=== PATIENT | male | born 1990 | race Caucasian/White ===

== ENCOUNTER 2020-08-18 13:42 | Emergency (ER) | payer OTHER ==
[~2020-08-18] VITALS: Ht 193 cm; Wt 128.8 kg
--- NOTE | 2020-08-18 14:48 | REP ---
INDICATION: TRAUMA, HYPEREXTENSION. COMPARISON: None. TECHNIQUE: Four views of the left wrist. FINDINGS: Four views of the left wrist demonstrate overall normal mineralization. Joint spaces are preserved. No fracture or subluxation is seen. Alignment is normal. IMPRESSION: Negative radiographs of the left wrist. <Electronically signed by Favian Aguila > 08/18/20 [id number]
[2020-08-18] MEDS ORDERED: KETOROLAC 60MG 2ML VIAL IM ONE (16:30)
[2020-08-18 16:33] VITALS: BP 136/96
--- OUTSIDE RECORDS SUMMARY | 2020-08-18 16:39 | CCD ---
Author Author [facility] Organization [facility] Address Unknown Phone Unavailable Care Team Providers Care Industrial Machinery Mechanic Name Role Phone BULL SORIANO Unavailable Unavailable Giles, Jennifer FRONT END SOFTWARE ENGINEER Unavailable Unavailable Giles, Jennifer FRONT END SOFTWARE ENGINEER Unavailable Unavailable Giles, Jennifer FRONT END SOFTWARE ENGINEER Unavailable Unavailable Giles, Jennifer FRONT END SOFTWARE ENGINEER Unavailable Unavailable Giles, Jennifer FRONT END SOFTWARE ENGINEER Unavailable Unavailable Giles, Jennifer FRONT END SOFTWARE ENGINEER Unavailable Unavailable Giles, Jennifer FRONT END SOFTWARE ENGINEER Unavailable Unavailable Giles, Jennifer FRONT END SOFTWARE ENGINEER Unavailable Unavailable Giles, Jennifer FRONT END SOFTWARE ENGINEER Unavailable Unavailable Giles, Jennifer FRONT END SOFTWARE ENGINEER Unavailable Unavailable Giles, Jennifer FRONT END SOFTWARE ENGINEER Unavailable Unavailable Mele PLAZA MD Unavailable Unavailable VENERUSMele MD Unavailable Unavailable VENERUSMele MD Unavailable Unavailable VENERUSMele MD Unavailable Unavailable VENERUSMele MD Unavailable Unavailable VENERUSMele MD Unavailable Unavailable VENERUSMele MD Unavailable Unavailable VENERUSMele MD Unavailable Unavailable VENERUSMele MD Unavailable Unavailable Re-disclosure Warning The records that you are about to access may contain information from federally-assisted alcohol or drug abuse programs. If such information is present, then the following federally mandated warning applies: This information has been disclosed to you from records protected by federal confidentiality rules (42 CFR part 2). The federal rules prohibit you from making any further disclosure of this information unless further disclosure is expressly permitted by the written consent of the person to whom it pertains or as otherwise permitted by 42 CFR part 2. A general authorization for the release of medical or other information is NOT sufficient for this purpose. The Federal rules restrict any use of the information to criminally investigate or prosecute any alcohol or drug abuse patient.The records that you are about to access may contain highly sensitive health information, the redisclosure of which is protected by Article 27-F of the [place] Public Health law. If you continue you may have access to information: Regarding HIV / AIDS; Provided by facilities licensed or operated by the [place] Office of Mental Health; or Provided by the [place] Office for People With Developmental Disabilities. If such information is present, then the following [place] mandated warning applies: This information has been disclosed to you from confidential records which are protected by state law. State law prohibits you from making any further disclosure of this information without the specific written consent of the person to whom it pertains, or as otherwise permitted by law. Any unauthorized further disclosure in violation of state law may result in a fine or prison sentence or both. A general authorization for the release of medical or other information is NOT sufficient authorization for further disc losure. Allergies and Adverse Reactions Type Description Substance Reaction Status Data Source(s ) No Known Drug Allergies No Known Drug Allergies [facility] No Known Environmental Allergies No Known Environmental [facility] No Known Food Allergies No Known Food Allergies [facility] Encounters Encounter Providers Location Date Indications Data Source(s ) Emergency Attender: CHRISTOS PLAZA MD 03/16 12:35:00 PM EDT - 03/16/2020 04:46:00 PM EDT [facility] Patient discharged. Outpatient Attender: BULL SORIANO 02/26/20 06:59:21 AM EDT - 02/27/2020 12:30:00 PM EDT [facility] Patient discharged. Outpatient Attender: BULL SORIANO 02/22/20 09:27:07 AM EDT - 02/22/2020 09:59:00 AM EDT [facility] Patient discharged. Outpatient Attender: Jennifer zuluaga 10/27/2019 03:00:00 PM EDT [facility] ([facility]) Medications Medication Brand Name Start Date Product Form Dose Route Admi nistrative Instructions Pharmacy Instructions Status Indications Reaction Description Data Source(s) 20 mg 10/28/2019 12:00:00 AM EDT tablet 8 TAKE ONE TABLET BY MOUTH TWICE A DAY FOR 4 DAYS TAKE ONE TABLET BY MOUTH TWICE A DAY FOR 4 DAYS SOLD: 2019 [facility] 4 mg 10/28/2019 12:00:00 AM EDT capsule 30 TAKE ONE CAPSULE BY MOUTH EVERY 6 TO 8 HOURS NEEDED TAKE ONE CAPSULE BY MOUTH EVERY 6 TO 8 HOURS NEEDED SOLD: 10/28/2019 [facility] Ibuprofen 800 MG Oral Tablet Ibuprofen 10/27/2019 12:00:00 AM EDT ORAL active [facility] ([facility] 800 mg 10/27/2019 12:00:00 AM EDT tablet 30 TAKE ONE TABLET BY MOUTH THREE TIMES A DAY NEEDED FOR PAIN TAKE ONE TABLET BY MOUTH THREE TIMES A D AY NEEDED FOR PAIN SOLD: 10/27/2019 [facility] Insurance Providers Payer name Policy type / Coverage type Policy ID Covered constitution party ID Covered constitution party's relationship to arizmendi Policy Arizmendi Plan Information [facility] [id number] SP [id number] [facility] [id number] [facility] - O/P [id number] 18 [id number] Problems, Conditions, and Diagnoses Code Display Name Description Problem Type Effective Dates Data Source(s) R600 Localized edema Localized edema Diagnosis 03/16/2020 12:3 5:00 PM EDT [facility] R2242 Localized swelling, mass and lump, left lower limb Localized swelling, mass and lump, left lower limb Diagnosis 03/16/2020 12:35:00 PM EDT [facility] [id number] Other instability, left ankle Other instability, left ankle Diagnosis 02/27/2020 06:15:00 AM EDT [facility] [id number] Encounter for other preprocedural examin ation Encounter for other preprocedural examination Diagnosis 02/22/2020 09:30:[address] [facility] Surgeries/Procedures Procedure Description Date Indications Data Source(s) Apply Splint Short Leg (Calf To Foot) 10/27/2019 12:00 :00 AM EDT [facility] ([facility] Results ID Date Data Source [id number] 07/15/2020 12:00:00 AM EST [facility] Name Value Range Interpretation Code Description Data Cindy rce(s) Supporting Document(s) SARS coronavirus 2 RNA Not Detected [facility] This lab was ordered by [employer] and rep orted by [facility]. ID Date Data Source [id number] 03/17/2020 09:47:00 AM EDT [facility] [address] [place] [address] PHONE: [phone] FAX: [phone] Name .................. : LETTY Eng Acct Number.................. : [id number] ROOM. ................. : TR-04 Number ................... : [id number] Stay type ............. : E/R Discharge Date......... ... : Admit Date ......... : 03/16/20 Admit Phys .................... : MAGGIES GRETCHEN Date of ....... : 1990 Family Phys ................... : UNKNOWN CO Phone .................. : [phone] Age ................................ : 29 Film# .................. .:[id number] Sex ................................. : M Unsigned transcriptions are preliminary reports and do not represent a medical or legal document US DOPPLER UNILATERAL VENOUS [id number] COMPLETE:03/16/20 13:29 [id number] Reason(s): Cold Extremity LEFT LEG VENOUS DOPPLER ULTRASOUND: INDICATION: Cold extremity. FINDINGS: There is normal compressibility of the deep venous system from the external iliac through the popliteal vein with normal augmentation identified. IMPRESSION: No evidence for any underlying DVT. Electronically Reviewed and Signed By Arnel Lee MD , 03/17/20 09:47, CRESENCIO pierre Initials: DZ , Transcribe Date: 03/16/20 16:04, Dictation Date: Copy for: LORENA BETH via fax Copy for: EMERGENCY DEPT via modem Copy for: 710 MED REC DISCHARGED Page 1 of 1 Name Value Range Interpretation Code Description Data Cindy rce(s) Supporting Document(s) ID Date Data Source [id number] 03/16/2020 12:35:00 PM EDT [facility] 1 OrderSheet [facility] Emergency Department [address] [place] [address] Phone #: ext- [phone] 03/16/2020 12:33 Patient: DAMEON SAENZ Sex: M : 1990 Age: 29yWEIGHT:120.2 kg (S) HEIGHT:76 inches (S) BMI:32.3ALLERGIES: NoneCHIEF COMPLAINT: pain, swellingDIAGNOSIS: O/E - edema of feet, Pain in lower limbLAB ORDERSOrder Description Priority Entered Acknowledged InitialedCBC w Diff STAT 13:03/16/2020 13:33 Geo LinoNBernardo PBernardoA.-C;CMP STAT 13:03/16/2020 13:33 Geo Lino R.N. PBernardoA.- C;Urinalysis (Clean STAT 13:03/16/2020 13:33 Zoie,Catch) Geo Rivera R.N. PBernardoABernardo-C;PT/PTT STAT 13:03/16/2020 13:33 Geo Lino R.N.ABernardo-C;DIAGNOSTIC STUDY ORDERSOrder Description Priority Entered Acknowledged InitialedUS Lower Ext STAT 13:03/16/2020 13:33 Zoie,Venous Left Geo Rivera R.N.(Oxygen?(No)) P.A.-C; Reason for Study: Cold Extremity, Discolored Extremity, Lower Ext Pain/Immobility, Pain, Limb, Swelling, LimbMEDICATION/IV/DRIP/FLUID ORDERSOrder Description Priority Entered Acknowledged InitialedAtivan PO 1 mg 13:03/16/2020 13:49 Geo Lino R.N. P.A.-C;Tylenol PO 1000 13:03/16/2020 13:48 Zoie,mg Geo Rivera R.N. P.A.-C;GENERAL ORDERS 2 OrderSheet [facility] Emergency Department [address] [place] [address] Phone #: ext- [phone] 03/16/2020 12:33 Patient: DAMEON SAENZ Sex: M : 1990 Age: 29yOrder Description Priority Entered Acknowledged InitialedNPO 13:03/16/2020 13:33 Geo Lino R.N. PBernardoA.-C;Saline Lock 13:03/16/2020 16:24 Suzi Partida RN P.A.-C;[Electronically signed by Miguel Lino R.N. (16:53 03/16/2020)][Electronically signed by Geo Pantoja P.A.-C (21:06 03/16/2020)][Electronically locked by Miguel Lino R.N. (16:53 03/16/2020)] Name Value Range Interpretation Code Description Data Cindy rce(s) Supporting Document(s) ID Date Data Source [id number] 03/16/2020 12:35:00 PM EDT [facility] 1 Medication Reconciliation Report [facility] Emergency Department [address] [place] [address] Phone #: ext- [phone] 03/16/2020 12:33 [id number] Sex[facility] M : 1990 Age: 29yWeight: 120.2 kgHeight/Length: 76 in.BMI: 32.3ALLERGIES: NoneThe patient's Home Medications are listed below:NONE.The source(s) of the original Home Medication information:patientThe following Medications were given to the patient in the Emergency Department:Tylenol [PO] PO 1000 mg, administered: 03/16/2020 1:38:00 PMAtivan [PO] PO 1 mg, administered: 03/16/2020 1:39:00 PMThe following Medications were prescribed to the patient:Media 5 mg- 325 mg tablet Take 1 tablet three times a day for 3 days -- Dispense 9 tablet. Refills: 0.Substitution permitted. Note to Pharmacy - Post op pain.Pharmacy - [id number] ; [place] [address]. . -- Geo Pantoja P.A.-C Name Value Range Interpretation Code Description Data Cindy rce(s) Supporting Document(s) ID Date Data Source [id number] 03/16/2020 12:35:00 PM EDT [facility] 1 Medication Administration Record [facility] Emergency Department [address] [place] [address] Phone #: ext- [phone] 03/16/2020 12:33 Patient: DAMEON SAENZ Sex: M : 1990 Age: 29yWeight: 120.2 kgHeight/Length: 76 inBMI: 32.3ALLERGIES: None Date/Time Medication Administered Medication OrderedGiven ATIVAN [PO] (LORAZEPAM) Ativan PO 1 mg13:39 03/16/2020 Dose: 1 mg Tablets POSMiguel jack, R.N.Given TYLENOL [PO] (APAP) Tylenol PO 1000 mg13:38 03/16/2020 Dose: 1000 mg Tablets Miguel Barksdale, R.N. Name Value Range Interpretation Code Description Data Cindy rce(s) Supporting Document(s) ID Date Data Source [id number] 03/16/2020 12:35:00 PM EDT [facility] 1 General Instructions [facility] Emergency Department [address] [place] [address] Phone #: ext- [phone] 03/16/2020 12:33 Patient: DAMEON SAENZ Sex: M : 1990 Age: 29yAcute left calf, ankle and foot pain.Left pedal edema secondary to unknown cause.INSTRUCTIONSUse crutches. Wear boot orthosis.(Discussed and Dr. Soriano wants to see you in the AM at the clinic).Warnings: Further evaluation is necessary.SEDATIVE MEDICATION: You were given sedative medication during your visit. Do not drive or operatedangerous machinery.CONTROLLED SUBSTANCE WARNINGS.GENERAL WARNINGS: Return or contact your physician immediately if your condition worsens orchanges unexpectedly, if not improving as expected, or if other problems arise.Prescription monitor program consulted by me.Prescription Medications:Media 5 mg-325 mg tablet Take 1 tablet three times a day for 3 days -- Dispense 9 tablet. Refills: 0.Substitution permitted. Note to Pharmacy - Post op pain.Pharmacy - [facility] [phone] ; [place] [address]. .Follow-up:Return to the emergency department as needed. Follow up with your healthcare provider tomorrow.Reason for referral: evaluation and treatment.Understanding of the discharge instructions verbalized by patient.Follow-up with: [facility], , , [address], ,[place], [address] Follow up tomorrow. Reason for referral: evaluation and treatment. ADDITIONAL INFORMATIONMyofascial Pain Syndrome 2 General Instructions [facility] Emergency Department [address] [place] [address] Phone #: ext- [phone] 03/16/2020 12:33 Patient: DAMEON SAENZ Sex: M : 1990 Age: 29yYour pain is caused by a state of chronic muscle tension. This condition is called by various names:myofascial pain, fibrositis, and trigger point pain. This can also be due to mechanical stress, such asworking at a computer terminal for long periods or work that requires repetitive motions of the arms orhands. It can also be caused by emotional stress, such as problems on the job or in your personallife. Sometimes there is no obvious cause. The pain can happen in the area of the muscle spasm orat a site distant to it. For example, spasm of a neck muscle can cause headache. Spasm of themuscle near the shoulder blade can cause pain shooting down the arm.Home care Try to identify the factors that may be causing your problem and change them: o If you feel that emotional stre ss is a cause of your pain, learn methods to better deal with the stress in your life. These may include regular exercise, muscle relaxation techniques, meditation, or simply taking time out for yourself. Talk with your healthcare provider or go to a local bookstore and review the many books and tapes about reducing stress. o If you feel that physical stress is a cause for your pain, try to change any poor work habits. You may use wqpv-rlx-astxaid pain medicine to control pain, unless another medicine was prescribed. If you have chronic liver or kidney disease or ever had a stomach ulcer or gastrointestinal bleeding, talk with your healthcare provider before using these medicines. Apply an ice pack over the injured area for 15 to 20 minutes every 3 to 6 hours. You should do this for the first 24 to 48 hours. You can make an ice pack by filling a plastic bag that seals at the top with ice cubes and then wrapping it with a thin towel. Be careful not to injure your skin with the ice treatments. Ice should never be applied directly to skin. Continue the use of ice packs for relief of pain and swelling as needed. After 48 hours, apply heat (warm shower or warm bath) for 15 to 20 minutes several times a day, or alternate ice and heat. Massage the trigger point and stretch out the muscle. Trigger point massage can be done by applying heat to the area to warm and prepare the muscle. Then have someone apply steady thumb pressure directly on the knot in the muscle for 30 seconds. Release the pressure, then massage the surrounding muscle. Repeat the process, applying more pressure to the trigger point each time. Do this up to the limit of pain. With each treatment, the trigger point should become less tender and the pain should decrease. You can apply local pressure to trigger points in the back by lying on the floor with a tennis ball under the trigger point.Follow-up careFollow up with your healthcare provider, or as advised. You may need physical therapy if you don'trespond to home treatment alone. 3 General Instructions [facility] Emergency Department [address] [place] [address] Phone #: ext- [phone] 03/16/2020 12:33 Patient: DAMEON SAENZ Sex: M : 1990 Age: 29yCall 911Call 911 if you have: A trigger point in the chest muscles, pain that becomes more severe, lasts longer, or spreads into your shoulder, arm, or jaw Chest pain or discomfort Trouble breathing with or without chest discomfort Sweating, lightheadedness, nausea, or vomiting along with chest discomfort Sudden weakness or numbness in the arm, leg, or face, especially if this happens on one side of the b odyWhen to seek medical adviceCall your healthcare provider right away if any of these occur: A week passes and you have not improved If your pain worsens, regardless of its location [phone] [employer]. [address] [place] [address]. All rights reserved. This information is not intended as asubstitute for professional medical care. Always follow your healthcare professional's instructions. You have been given the following additional information: Myofascial Pain Syndrome(Electronically signed by Geo Pantoja P.A.-C 03/16/2020 21:06) Name Value Range Interpretation Code Description Data Cindy rce(s) Supporting Document(s) ID Date Data Source [id number] 03/16/2020 12:35:00 PM EDT [facility] 1 Clinical Report - Nurses [facility] Emergency Department [address] [place] [address] Phone #: ext- [phone] 03/16/2020 12:33 Patient: DAMEON SAENZ Sex: M : 1990 Age: 29yTRIAGEArrived by private vehicle. Historian: patient. Accompanied by family. ( presents with left leg post oppain. rostrum done on left ankle 02/27/2020).Triage time: 12:38 03/16/2020. Acuity: LEVEL 4.Chief Complaint: LEFT LOWER EXTREMITY SWELLING and REDNESS.12:38 03/16/20. Alert. No acute distress.No injury occurred. This is a new problem and onset was abrupt. (02/27/2020).Treatment [employer]:Took Tylenol and ibuprofen. Seen within the last 72 hours at another facility; seen for similar symptoms;sonogram done.SEPSIS SCREEN: Sepsis Screen negative. No suspected or confirmed signs of infection present.SHAUN COMA SCORE: 15- eyes open- spontaneous (4); best verbal response- oriented (5); bestmotor response- obeys commands (6). --12:44 03/16/20 Miguel Lino R.N.13:32 03/16/20. BP: 145/85. MAP: 105. HR: 93. RR: 16. O2 saturation: 100%. Temp: 95.6 F. Pain levelnow: 11/03. --13:33 03/16/20 Miguel Lino R.N.Weight: 120.2 kg stated. Height/Length: 76 inches Per Patient. BMI: 32.3. --12:38 03/16/20 Miguel Lino R.N.MedicationsNone. --12:42 03/16/20 Miguel Lino R.N.AllergiesNone. --12:42 03/16/20 Miguel Lino R.N.PROBLEMS:no known problems.12:38 03/16/20. Medication/allergy information source: the patient. --12:44 03/16/20 Miguel Lino R.N.ADDITIONAL SURGERIES:Rostrum [02/27/2020]. (Left ankle). --12:42 03/16/20 Miguel Lino R.N.Yjrardo89:38 03/16/20. 2 Clinical Report - Nurses [facility] Emergency Department [address] [place] [address] Phone #: ext- [phone] 03/16/2020 12:33 Patient: DAMEON SAENZ Sex: M : 1990 Age: 29y PAST MEDICAL HX: Tetanus status: up-to-date. SOCIAL HX: Never smoker. Occasional alcohol use. No drug use. He was offered HIV testing but declined and hepatitis C testing but declined. He has not traveled outside the [place] Infectious disease exposure: No infectious disease exposure. Patient is not a known carrier of tuberculosis, hepatitis, HIV, MRSA or VRE. Patient is not a known carrier of CRE. SELF HARM ASSESSMENT: Self harm assessment was performed. The patient answered "no" to the question(s) "Have you recently felt down, depressed, or hopeless?", "Do you have thoughts of harming or killing yourself?", "Do you have a plan for harming or killing yourself?" and "Have you recently had thoughts about harming or killing others?". ABUSE ASSESSMENT: No report of abuse. NUTRITIONAL RISK ASSESSMENT: The nutritional risk assessment revealed no deficiencies. FUNCTIONAL ASSESSMENT: Functional assessment: no impairments noted. LEARNING NEEDS ASSESSMENT: The learning needs assessment revealed no barriers. FALL RISK ASSESSMENT: Fall risk assessment completed. Risk factors identified include patient impairment of mobility. SKIN INTEGRITY ASSESSMENT: Skin integrity risk assessment completed. No skin integrity risk identified. --12:44 03/16/20 Miguel Lino R.N. Assessment 12:38 03/16/20. He states feels the same. --12:44 03/16/20 Fr daylin Lino R.N. Interventions 12:38 03/16/20. Identification band on patient. To treatment room. --12:44 03/16/20 Miguel Lino R.N.PHYSICAL VINJPXDRHC45:45 03/16/20. Ambulatory to room.GENERAL / NEURO / PSYCH: Oriented X 4. Alert. Appears in no acute distress.EXTREMITIES: Limited ROM present in the left ankle. Constant and increased with dorsiflexion left-sidedcalf tenderness. Non-pitting edema of the left lower extremity involving the foot and ankle. Extremitypulses are within normal limits. Neuro-vascular status intact to the extremity. Left ankle. Left lateralankle: tenderness, swelling and erythema (sutures intact). Left foot.SKIN: Skin intact. Skin is warm and dry. --12:45 03/16/20 Miguel Lino R.N. Correction --12:46 03/16/20Miguel jack R.N. 12:47 03/16/20. Ambulatory to room. GENERAL / NEURO / PSYCH: Oriented X 4. Alert. Appears in no acute distress. 3 Clinical Report - Nurses [facility] Emergency Department [address] [place] [address] Phone #: ext- [phone] 03/16/2020 12:33 Patient: DAMEON SAENZ Sex: M : 1990 Age: 29y EXTREMITIES: Limited ROM present in the left ankle. Constant and increased with dorsiflexion left-sided calf tenderness. Non-pitting edema of the left lower extremity involving the foot and ankle. Extremity pulses are within normal limits. Neuro-vascular status intact to the extremity. Left ankle. Left lateral ankle: tenderness, swelling and erythema (steri strips intact). Left foot. SKIN: Skin intact. Skin is warm and dry. --12:47 03/16/20 Miguel Lino R.N.NURSING PROGRESS NOTES12:46 03/16/20. Reassurance given. Two patient identifiers checked. Call light placed in reach. Bedplaced in lowest position. Brakes of bed on. Patient ready for evaluation- PA notified. --12:46 03/16/20Miguel jack R.N. 13:34 03/16/20. BP: 138/76. MAP: 96. HR: 81. RR: 18. O2 saturation: 98%. --13:35 03/16/20 [facility] Tech [facility] Tech1 13:38 03/16/2020 Tylenol (APAP) PO Tablets 1000 mg given. Allergies verified and confirmed 5 rights. Information reviewed with patient including reason for taking this medication, signs of allergic reaction and precautions. Verbalizes understanding. --13:48 03/16/20 Miguel Lino R.N. 13:39 03/16/2020 Ativan (LORazepam) PO Tablets 1 mg given. Allergies verified and confirmed 5 rights. Information reviewed with patient including reason for taking this medication, signs of allergic reaction, precautions and sedative warning. Verbalizes understanding. --13:49 03/16/20 Miguel Lino R.N. 13:39 03/16/20. Patient transported [facility] by wheelchair with zoning technician. --13:49 03/16/20 Miguel Lino R.N. 13:52 03/16/20. [facility] with zoning technician. --13:52 03/16/20 Miguel Lino R.N. 14:31 03/16/20. BP: 131/79. MAP: 96. HR: 81. RR: 18. O2 saturation: 99%. --14:31 03/16/20 [employer], [facility] Tech1 14:31 03/16/20. Reassurance given. Reassessment after medication administered. No adverse reaction. Pain still present but improving. He reports no complaints, he is resting quietly and he has had no adverse reaction. Overall patient status is improved- he states feels better. GENERAL / NEURO / PSYCH: Alert. Oriented X 4. RESPIRATORY: No respiratory distress. CVS: Capillary refill less than 2 seconds. EXTREMITIES: Neuro-vascular status intact to the extremities. SKIN: Skin is warm and dry. Two patient identifiers checked. Call light placed in reach. Bed placed in lowest position. Brakes of bed on. Patient informed about reason for wait and about plan of care. Patient waiting for evaluation and radiology results. --14:32 03/16/20 Miguel Lino R.N.DISPOSITION / DISCHARGE 16:26 03/16/20. BP: 127/78. MAP: 94. HR: 75. RR: 18. O2 saturation: 99%. Temp: 98.2 F. --16:27 4 Clinical Report - Nurses [facility] Emergency Department [address] [place] [address] Phone #: ext- [phone] 03/16/2020 12:33 Patient: DAMEON SAENZ Sex: M : 1990 Age: 29y 03/16/20 [facility] Isidra Woodson ER Tech1 16:41 03/16/20. Pain level now 10. --16:44 03/16/20 Miguel Lino R.N. Departure time: 16:44 03/16/2020. Condition at departure: improved and stable. The goals identified in the patient's plan of care were met. Fall risk assessment completed. Risk factors identified include patient impairment of mobility. No learning barriers present. Discharge instructions provided and reviewed with the patient. Reviewed warnings. Reviewed medication(s). Treatments reviewed. Reviewed referral to an orthopedic surgeon. Patient and spouse verbalized understanding. Written instructions provided in Setswana. The patient was discharged by the physician dam tender assistant. He was discharged home and accompanied by spouse and family. He left ambulatory and via private vehicle. Patient driving. --16:44 03/16/20 Miguel Lino R.N.Locked/Released at 03/16/2020 16:53 by Miguel Lino R.N. Name Value Range Interpretation Code Description Data Cindy rce(s) Supporting Document(s) ID Date Data Source [id number] 03/16/2020 12:35:00 PM EDT [facility] 1 Clinical Report - Physicians/Mid Levels [facility] Emergency Department [address] [place] [address] Phone #: ext- [phone] 03/16/2020 12:33 [id number] Sex[facility] : 1990 Age: 29y Time Seen: 12:48 03/16/2020; initial patient contact, initial documentation. Arrived- By private vehicle.HISTORY OF PRESENT ILLNESS Chief Complaint: LOWER EXTREMITY PAIN and SWELLING. This started about 1 weeks ago and is still present. Severity is described as being moderate. The quality is noted to be dull, aching and "pain". Symptoms located in the area of the left leg, left foot and left ankle. The patient has had redness and swelling. No difficulty walking. No bladder dysfunction, bowel dysfunction, sensory loss or motor loss. ( Pt presnets to the ER as directed by surgeon for non-improving LLE s/p surgery. Pt has [place]strom Procedure of L ankle on [id number]. Sts that he has has frequent f/u's w/ surgeon. Had sutures taken out. Sts thta over the last 1-2 wks noted a swelling/pain if he is up and noted that when he elevates it resovles. Sts he b rought this up with surgeon and sts that he had US on Thr and saw Surgon (Dr. Bull Soriano ([employer] Surgeon)) on Tuesday who infomred negative. Pt complaints of pain, swelling, and discoloration, but somewhat resolve if elevated. Pt sts he was informed if no improvement by Tuesday to go to the ER for eval. Pt deneis any CP, SOB, dyspnea, or palps. Sts he is doing as instructed as there has been no improvement.). Patient denies an injury. Similar symptoms previously. None. Recent medical care: The patient was seen recently at another facility.REVIEW OF SYSTEMSNo cough, chest pain, difficulty breathing, fever or skin rash. No enlarged lymph nodes, neck pain, backpain, headache or blurred vision. No sore throat, abdominal pain, vomiting, diarrhea or black stools. Nodifficulty with urination or bloody stools. All other systems reviewed and are negative.PAST HISTORYSee nurses notes. Problems: no known problems. Medications: None. Allergies: None. 2 Clinical Report - Physicians/Mid Levels [facility] Emergency Department [address] [place] [address] Phone #: ext- [phone] 03/16/2020 12:33 Patient: DAMEON SAENZ Sex: M : 1990 Age: 29ySOCIAL HISTORYNever smoker. Occasional alcohol use. No drug use.ADDITIONAL NOTESThe nursing notes have been reviewed.PHYSICAL EXAMVital Signs: 03/16/2020 13:32 BP: 145/85. MAP: 105. HR: 93. RR: 16. O2 saturation: 100%. Temp: 95.6F. Pain level now: 11/03. Have been reviewed. Oxygen saturation normal.Appearance: Alert. Oriented X3. No acute distress.CVS: Normal heart rate and rhythm. No JVD present. Pulses normal. Capillary refill normal. Strongperipheral pulses. Heart sounds normal. Pulses: right radial 2+; left radial 2+; right dorsalis pedis 2+; leftdorsalis pedis 2+; right posterior tibial 2+; left posterior tibial 2+.Respiratory: Chest normal on inspection. No respiratory distress. Unlabored respirations. Lungs clear.Good chest movement. Breath sounds normal and equal.Skin: Skin warm and dry.Extremities: Left leg: moderate erythema, tenderness and swelling. Neurovascular intact distally. Nolaceration, abrasion, ecchymosis, puncture wound or foreign body. No deformity. Left ankle: moderateerythema, tenderness and swelling. Neurovascular intact distally. (Surgical scar to the lateral aspect). Noabrasion. No signs of infection involving the lower extremities. Lower extremity edema. Calftenderness. No left thigh complaints.Gait: Gait not tested due to pain.Neuro: Awake. Alert. Mood/affect normal. Speech normal. No motor deficit. No sensory deficit.Psych: Cognition normal. Thought process and content normal. Insight and judgement normal.LABS, X-RAYS, AND EKGLower Extremity Sonography: Jesus pratt Brian - 03/16/2020 2:09:54 PMno dvt. The study was interpreted by the radiologist.Laboratory Tests: CBC w Diff: (LOUIE: 03/16/2020 14:04) ( MsgRcvd 03/16/2020 14:21) Final results Test Result Flag Units (Reference) CBC W/AUTOMATED DIFF COMPLETE BLOOD COUNT WBC 10.0 10/uL (4.2 - 11.0) RBC 5.20 10/uL (4.50 - 6.30) HEMOGLOBIN 15.5 g/dL (14.0 - 16.0) HEMATOCRIT 46.2 % (41.0 - 51.0) MCV 88.8 fL (80.0 - 94.0) MCH 29.8 pg (27.0 - 34.0) MCHC 33.5 g/dL (31.0 - 36.0) RDW 13.5 % (11.5 - 14.8) PLATELETS 354 10/uL (150 - 450) MPV 10.1 fL (7.4 - 10.4) NEUT 71.0 % (37.0 - 80.0) LYMPH 18.4 L % (25.0 - 40.0) MONO 9.0 H % (3.0 - 8.0) EOS 0.7 % (0.0 - 7.0) BASO 0.6 % (0.0 - 2.0) 3 Clinical Report - Physicians/Mid Levels [facility] Emergency Department [address] [place] [address] Phone #: ext- [phone] 03/16/2020 12:33 Patient: DAMEON SAENZ Sex: M : 1990 Age: 29y %IG 0.3 H % (0.0 - 0.0) %NRBC 0.0 % (0.0 - 0.0) #NEUT 7.11 H 10/uL (2.00 - 6.90) #LYMPH 1.84 10/uL (0.60 - 3.40) #MONO 0.90 10/uL (0.00 - 0.90) #EOS 0.07 10/uL (0.00 - 0.70) #BASO 0.06 10/uL (0.00 - 0.20) #IG 0.03 10/uL (0.00 - 0.10) #NRBC 0.00 10/uL (0.00 - 0.00) MANUAL DIFF NOT INDICATED RBC MORPH NOT INDICATEDCMP: (LOUIE: 03/16/2020 14:04) ( MsgRcvd 03/16/2020 14:35) Final results Test Result Flag Units (Reference) COMPREHENS MAGEN METABOLIC PANEL COMPREHENSIVE METABOLIC PANEL SODIUM 141 mEq/L (134 - 153) POTASSIUM 4.3 mEq/L (3.6 - 5.0) CHLORIDE 103 mEq/L (98 - 107) CO2 27 MEQ/L (22 - 30) GLUCOSE 91 MG/DL (65 - 110) BUN 10 MG/DL (7 - 21) CREATININE 1.1 MG/DL (0.7 - 1.5) BUN/CREAT 9 (8 - 27) TOTAL PROTEIN 6.4 G/DL (6.3 - 8.2) ALBUMIN 4.5 G/DL (3.9 - 5.0) GLOBULIN 1.9 L GM/DL (2.4 - 3.2) A/G RATIO 2.4 H (0.8 - 2.0) CALCIUM 9.8 MG/DL (8.4 - 10.2) TOTAL BILI <0.7 MG/DL (0.2 - 1.3) ALKALINE PHOS 47 U/L (38 - 126) SGOT/AST 13 U/L (5 - 40) SGPT/ALT 13 U/L (7 - 56) ANION GAP 11.0 mmol/L (8.0 - 16.0) AGE 29 yrs NON-AA GFR >60 mL/min AFR AMER GFR >60 mL/min Male GFR Interprentation 20-49 yrs >60 mL/min Ltlrsc03-55 yrs >56 mL/min Normal 60-69 yrs >49 mL/min Normal 70-79yrs>42 mL/min Normal 80 and above >35 mL/min Normal Female GFRInterpretation 20-39 yrs >60 mL/min Normal 40-49 yrs >58 mL/minNormal 50-59 yrs >51 mL/min Normal 60-69 yrs >45 mL/min Aofgbn77-81 yrs >39 mL/min Normal 80 and above >32 mL/min NormalPT/PTT: (LOUIE: 03/16/2020 14:04) ( MsgRcvd 03/16/2020 15:50) Final results Test Result Flag Units (Reference) PROTIME 13.0 SECONDS (11.0 - 15.5) INR 0.97 (0.93 - 1.23) PTT 26.4 SECONDS (24.8 - 36.7) \\BLDo\\INR INTERPRETATION\\BLDx\\ Therapeutic range for Coumadin andrelated oral anticoagulants. -International Normalized Ratio (INR): 2.0 - 3.0 for VenousThrombosis, Pulmonary Embolus, Tissue heart valves, Acute FL At rial Fibrillation, Valvular heart diseaseand recurrent Systemic Embolism. -International Normalized Ratio (INR): 2.5 - 3.5 forMechanical Prosthetic valve.US Lower Ext Venous Left: (LOUIE: 03/16/2020 13:29) ( MsgRcvd 03/16/2020 17:22) In Progress 4 Clinical Report - Physicians/Mid Levels [facility] Emergency Department [address] [place] [address] Phone #: ext- [phone] 03/16/2020 12:33 Patient: DAMEON SAENZ Sex: M : 1990 Age: 29y Exam US [place] [address] PHONE: [phone] FAX: [phone] Name .................. : LETTY Eng Acct Number.................. : [id number] ROOM. ................. : TR-04 MR Number ................... : [id number] Stay type ............. : E/R Discharge Date......... ... : Admit Date ......... : 03/16/20 Admit Phys .................... : MELA GODINEZ Date of ....... : 1990 Family Phys ................... : UNKNOWN CO Phone .................. : [phone] Age ................................ : 29 Film# .................. .:[id number] Sex ................................. : M Unsigned transcriptions are preliminary reports and do not represent a medical or legal d ocument US DOPPLER UNILATERAL VENOUS [id number] COMPLETE:03/16/20 13:29 [id number] Reason(s): Cold Extremity Discolored Extremity Lower Ext Pain/Immobility Pa LEFT LEG VENOUS DOPPLER ULTRASOUND: INDICATION: Cold extremity. FINDINGS: There is normal compressibility of the deep venous system from the external iliac through the popliteal vein with normal augmentation identified. IMPRESSION: No evidence for any underlying DVT. Electronically Reviewed and Signed By DCTNAME , SIGNDATECRESENCIO Transcribe Initials: FAWAD , Transcribe Date: 03/16/20 16:04, Dictation Date: <<REPDIST>> Page 1 of 1.PROGRESS AND PROCEDURESCourse of Care: VSS, NAD, AOx3, interacting well and appropriately, no use of accessory muscle, able tospeak full sentences, stable, non-toxic looking. Enter room and pt sitting peacefully in bed in NAD. Patient stable. Denies any new issues, concerns, or 5 Clinical Report - Physicians/Mid Levels [facility] Emergency Department [address] [place] [address] Phone #: ext- [phone] 03/16/2020 12:33 --- Patient: DAMEON SAENZ Sex: M : 1990 Age: 29y complaints. PE demos upon entering noted that LLE appeared slightly blue. Pt sts that is common. Sits back in bed and noted that LLE become more pink. No pulse d eficits; able to palpate adn obtain on doppler to confirm. ? venous insufficency. Will obtain labs and imaging for furhte reval. Pending resutls. Reviewed results and no DVT. No elevated WBC (no infection) and ntoe s/s of infection on PE. Disucssed with attending. Will consult with Ortho. Unable to contact surgeon (Dr. Soriano) to consult; do not have nubmer. Will call [employer]. Discussed with [employer]. Discussed with Dr. Dickson. Discussed and infomred of labs, hx, PE findings. Does not feel this a acute as this has been since surgery; pt sts has been a few weeks of this. ? possibe CRPS. Inquire if I shou ld consult vascular surgeon. Sts that it could be a option, but does not feel they will do anything due not acute. Consider consult. Nurse surpervisor was able to obtian nubmer to pts surgeon at [facility]. Called and discussed wiht Surgeon (Bull Soriano) at [phone]. Infomred of pt, PE findings today, lab and imaigng results, and ? possible conslut with vascular surgeon. Sts that these are the same s/s as he had seen this week and were still rpesent for hte last week. Sts he biggest concern was a DVT and this has been ruled out on 2 seperate occasions. Inquire about vascular surgeon consult. Sts that he will see pt in the clinic tomorrow and can be discharged. Enter room and patient lying peacefully in bed in NAD. Patient stable. Denies any new issues, concerns, or complaints. Discussed results with pt. Discussed tx plan with pt. Discussed and counseled on stable condition. Discussed importance of a f/u with PCP. Discussed return to ER criteria. Answered their questions. Indicates and verbalizes that they understand, agree, and will comply with above. Denies any new questions or concerns. Patient has capacity to understand. Discharge decision based on the following: patient's condition is stable; patient's exam is stable; social support is adequate; transportation is available; follow-up is available. Discussed of OTC Motrin and Tylenol to control inflammation and pain management. Informed to follow directions on bottle that are appropriate for age and/or weight. Disposition: Discharged home in good and improved condition. Condition: good and stable.CLINICAL IMPRESSION Acute left calf, ankle and foot pain. Left pedal edema secondary to unknown cause. 6 Clinical Report - Physicians/Mid Levels [facility] Emergency Department [address] [place] [address] Phone #: ext- [phone] 03/16/2020 12:33 Patient: DAMEON SAENZ Sex: M : 1990 Age: 29yIN STRUCTIONS Use crutches. Wear boot orthosis. (Discussed and Dr. Soriano wants to see you in the AM at the clinic). Warnings: Further evaluation is necessary. SEDATIVE MEDICATION: You were given sedative medication during your visit. Do not drive or operate dangerous machinery. CONTROLLED SUBSTANCE WARNINGS. GENERAL WARNINGS: Return or contact your physician immediately if your condition worsens or changes unexpectedly, if not improving as expected, or if other problems arise. Prescription monitor program consulted by me. Prescription Medications: Media 5 mg-325 mg tablet Take 1 tablet three times a day for 3 days -- Dispense 9 tablet. Refills: 0. Substitution permitted. Note to Pharmacy - Post op pain. Pharmacy - [facility] [id number] ; [place] [address]. . Follow-up: Return to the emergency department as needed. Follow up with your healthcare provider tomorrow. Reason for referral: evaluation and treatment. Understanding of the discharge instructions verbalized by patient. Follow-up with: [facility], , , [address], , [place], [address] Follow up tomorrow. Reason for referral: evaluation and treatment.(Electronically signed by Geo Pantoja P.A.-C 03/16/2020 21:06) Name Value Range Interpretation Code Description Data [facility] rce(s) Supporting Document(s) ID Date Data Source [id number] 03/16/2020 03:50:00 PM EDT [facility] Name Value Range Interpretation Code Description Data Cindy rce(s) Supporting Document(s) Prothrombin time (PT) 13.0 SECONDS 11.0 - 15.5 [facility] INR in Platelet poor plasma by Coagulation assay 0.97 0.93 - 1. 23 [facility] aPTT in Blood by Coagulation assay 26.4 SECONDS 24.8 - 36.7 [facility] \\BLDo\\INR INTERPRETATION\\BLDx\\ Therapeutic range for Coumadin and related oral anticoagulants. - International Normalized Ratio (INR): 2.0 - 3.0 for Venous Thrombosis, Pulmonary Embolus, Tissue heart valves, Acute FL Atrial Fibrillation, Valvular heart disease and recurrent Systemic Embolism. - International Normalized Ratio (INR): 2.5 - 3.5 for Mechanical Prosthetic valve. ID Date Data Source [id number] 03/16/2020 02:35:00 PM EDT [facility] Name Value Range Interpretation Code Description Data [facility](s) Supporting Document(s) COMPREHENSIVE METABOLIC PANEL [facility] COMPREHENSIVE METABOLIC PANEL Sodium [Moles/volume] in Serum or Plasma 141 mEq/L 134 - 153 [facility] Potassium [Moles/volume] in Serum or Plasma 4.3 mEq/L 3.6 - 5.0 [facility] Chloride [Moles/volume] in Serum or Plasma 103 mEq/L 98 - 107 [facility] Carbon dioxide, total [Moles/volume] in Serum or Plasma 27 MEQ/L 22 - 30 [facility] Glucose [Mass/volume] in Serum or Plasma 91 MG/DL 65 - 110 [facility] BUN 10 MG/DL 7 - 21 [facility] Creatinine [Mass/volume] in Serum or Plasma 1.1 MG/DL 0.7 - 1.5 [facility] BUN/CREAT 9 8 - 27 [facility] Protein [Mass/volume] in Serum or Plasma 6.4 G/DL 6.3 - 8.2 [facility] Albumin [Mass/volume] in Serum or Plasma 4.5 G/DL 3.9 - 5.0 [facility] Globulin [Mass/volume] in Serum by calculation 1.9 GM/DL 2.4 - 3.2 L [facility] A/G RATIO 2.4 0.8 - 2.0 H [facility] al Calcium [Mass/volume] in Serum or Plasma 9.8 MG/DL 8.4 - 10.2 [facility] Bilirubin.total [Mass/volume] in Serum or Plasma <0.7 MG/DL 0.2 - 1.3 [facility] Alkaline phosphatase [Enzymatic activity/volume] in Serum or Plasma 47 U/L 38 - 126 [facility] Aspartate aminotransferase [Enzymatic activity/volume] in Serum or Plasma 13 U/L 5 - 40 [facility] Alanine aminotransferase [Enzymatic activity/volume] in Seru m or Plasma 13 U/L 7 - 56 [facility] Anion gap 3 in Serum or Plasma 11.0 mmol/L 8.0 - 16.0 [facility] AGE 29 yrs [facility] al NON-AA GFR >60 mL/min [facility] AFR AMER GFR >60 mL/min [facility] spital Male GFR In terprentation 20-49 yrs >60 mL/min Normal 50-59 yrs >56 mL/min Normal 60-69 yrs >49 mL/min Normal 70-79yrs >42 mL/min Normal 80 and above >35 mL/min Normal Female GFR Interpretation 20-39 yrs >60 mL/min Normal 40-49 yrs >58 mL/min Normal 50-59 yrs >51 mL/min Normal 60-69 yrs >45 mL/min Normal 70-79 yrs >39 mL/min Normal 80 and above >32 mL/min Normal ID Date Data Source [id number] 03/16/2020 02:21:00 PM EDT [facility] Name Value Range Interpretation Code Description Data Cindy rce(s) Supporting Document(s) CBC W/AUTOMATED DIFF [facility] COMPLETE BLOOD COUNT Leukocytes [#/volume] in Blood by Automated count 10.0 10^3/uL 4.2 - 11.0 [facility] Erythrocytes [#/volume] in Blood by Automated count 5.20 10^6/uL 4. 50 - 6.30 [facility] Hemoglobin [Mass/volume] in Blood 15.5 g/dL 14.0 - 16.0 [facility] Hematocrit [Volume Fraction] of Blood by Automated count 46.2 % 4 1.0 - 51.0 [facility] Erythrocyte mean corpuscular volume [Entitic volume] by Auto mated count 88.8 fL 80.0 - 94.0 [facility] Erythrocyte mean corpuscular hemoglobin [Entitic mass] by Automated count 29.8 pg 27.0 - 34.0 [facility] Erythrocyte mean corpuscular hemoglobin concentration [Mass/volume] by Automated count 33.5 g/dL 31.0 - 36.0 [facility] Erythrocyte distribution width [Ratio] by Automated count 13.5 % 11.5 - 14.8 [facility] Platelets [#/volume] in Blood by Automated count 354 10^3/uL 150 - 45 0 [facility] Platelet mean volume [Entitic volume] in Blood by Automated count 10.1 fL 7.4 - 10.4 [facility] Neutrophils/100 leukocytes in Blood by Automated count 71.0 % 37. 0 - 80.0 [facility] Lymphocytes/100 leukocytes in Blood by Manual count 18.4 % 25.0 - 40.0 L [facility] Monocytes/100 leukocytes in Blood by Automated count 9.0 % 3.0 - 8.0 H [facility] Eosinophils/100 leukocytes in Blood by Automated count 0.7 % 0.0 - 7.0 [facility] Basophils/100 leukocytes in Blood by Automated count 0.6 % 0.0 - 2.0 [facility] %IG 0.3 % 0.0 - 0.0 H [facility] %NRBC 0.0 % 0.0 - 0.0 [facility] al Neutrophils [#/volume] in Blood by Automated count 7.11 10^3/uL 2.00 - 6.90 H [facility] Lymphocytes [#/volume] in Blood by Automated count 1.84 10^3/uL 0.60 - 3.40 [facility] Monocytes [#/volume] in Blood by Automated count 0.90 10^3/uL 0.00 - 0.90 [facility] Eosinophils [#/volume] in Blood by Automated count 0.07 10^3/uL 0.00 - 0.70 [facility] Basophils [#/volume] in Blood by Automated count 0.06 10^3/uL 0.00 - 0.20 [facility] #IG 0.03 10^3/uL 0.00 - 0.10 [facility] H ospital #NRBC 0.00 10^3/uL 0.00 - 0.00 [facility] ospital MANUAL DIFF NOT INDICATED [facility] RBC MORPH NOT INDICATED [facility] spital Procedure Social History Code Duration Value Status Description Data Source(s ) Smoking 10/27/2019 12:00:00 AM EDT Patient has never smoked co mpleted Patient has never [facility] Vital Signs ID Date Data Source UNK Name Value Range Interpretation Code Description Data Source(s) Body mass index (BMI) [Ratio] 32.3 kg/m2 32.3 k g/m2 [facility] ([facility] Body height 76 [in_i] 76 [in_i] [facility] ([facility]) 6'4" Body weight 265.00 [lb_av] 265.00 [lb_av] [facility] ([facility], [facility]) Body temperature 98.8 [degF] 98.8 [degF] [facility] ([facility] Oxygen saturation in Arterial blood by Pulse oximetry 98 % 98 % [facility] ([facility], [facility]) Respiratory rate 17 /min 17 /min [facility] ( [facility]) Heart rate 97 /min 97 /min [facility] ([facility] Diastolic blood pressure 95 mm[Hg] 95 mm[Hg] [facility] ([facility]) Systolic blood pressure 135 mm[Hg] 135 mm[Hg] [facility] ID Date Data Source [id number] 03/16/2020 02:06:55 PM EDT [facility] Name Value Range Interpretation Code Description Data Source(s) WEIGHT RECORDED 265.00 pounds 265.00 pounds [facility] Height 76 Inches 076 Inches [facility]
== END 2020-08-18 16:48 | disposition home or self-care (01) ==
LOC: M ED 13:42
DX: S63.522A Sprain of radiocarpal joint of left wrist, initial encounter (principal); X50.0XXA Overexertion from strenuous movement or load, initial encounter; Y92.39 Other specified sports and athletic area as the place of occurrence of the external cause; Y93.B3 Activity, free weights; Y99.9 Unspecified external cause status
CPT/HCPCS: 73110; 96372; 99283; J1885